=== PATIENT | male | born 1985 | race Caucasian/White ===

== ENCOUNTER 2017-10-10 23:06 | Inpatient (IN) | payer SELFPAY ==
[~2017-10-10] VITALS: Ht 175.3 cm; Wt 69.4 kg
[2017-10-11] VITALS (8 sets, daily range): BP systolic 136–188; BP diastolic 50–107
--- NOTE | 2017-10-11 00:26 | NUR ---
PT BIB FAMILY C/O GENERALIZED WEAKNESS AND NAUSEA X1 MONTH. DENIES PAIN OR ACUTE DISTRESS. RESP EVEN UNLABORED. SKIN WARM DRY. A/OX4. AMBULATORY STEADY GAIT.REPORTS WEAKNESS BUT NO FOCAL DEFICITS OR WEAKNESSES NOTED. DENIES VOMITING, DIARRHEA, OR URINARY SYMPTOMS. IN ER BED 11 WITH COUSIN AT BEDSIDE. Addendum: 10/11/17 at 0049 by [facility]FO[facility] CORRECTION: REPORTS VOMITING
--- NOTE | 2017-10-11 00:28 | NUR ---
PT ALSO REPORTS FEELING LIKE SOMETHING IS IN HIS THROAT. SKIN PALE.
[2017-10-11] MEDS ORDERED: ONDANSETRON HCL/PF 4 MG/2 ML VIAL IVP ONE (01:00)
[2017-10-11] MEDS ORDERED: ONDANSETRON HCL/PF 4 MG/2 ML VIAL ONE (01:06)
[2017-10-11] MEDS ORDERED: IV D5/ 0.9% NACL 1,000 ML IV ONE (01:11)
--- NOTE | 2017-10-11 01:18 | NUR ---
20G LEFT AC IV STARTED, MEDICATED PT ORDERED
[2017-10-11 01:28] LABS: ALBUMIN 3.1 g/dL (3.4-5.0); BILIRUBIN,DIRECT 0.1 mg/dL (0.0-0.2); BILIRUBIN,TOTAL 0.3 mg/dL (0.2-1.0); CALCIUM, SERUM 8.3 mg/dL (8.5-10.1); TOTAL PROTEIN, SERUM 6.8 g/dL (6.4-8.2)
[2017-10-11 01:36] LABS: BASOPHILS % (AUTO) 0.1 % (0.0-2.0); EOSINOPHILS % (AUTO) 1.4 % (0.0-6.0); LYMPHOCYTES # (AUTO) 0.7 /CMM (0.8-4.8); MEAN CORPUSCULAR HEMOGLOBIN 31 PG (26.0-33.0); MEAN CORPUSCULAR HGB CONC 34 g/dl (31.0-36.0); MEAN CORPUSCULAR VOLUME 90 fL (80-96); MONOCYTES # (AUTO) 0.5 /CMM (0.1-1.30); MONOCYTES % (AUTO) 9.3 % (2.0-12.0); NEUTROPHILS # (AUTO) 4.2 /CMM (1.8-8.9); NEUTROPHILS % (AUTO) 76.2 % (43.0-81.0); PLATELET COUNT (AUTO) 118 /CMM (150-450); RDW COEFFICIENT OF VARIATION 12.8 (11.5-15.0); RED BLOOD CELL COUNT(AUTO) 2.03 MIL/uL (4.5-6.0); WHITE BLOOD COUNT (AUTO) 5.6 K/uL (4.3-11.0)
[2017-10-11 01:43] LABS: APPEARANCE,URINE CLEAR (CLEAR); BILIRUBIN,URINE NEGATIVE (NEGATIVE); BLOOD, URINE 3+ Ery/uL (NEGATIVE); COLOR,URINE OTHER (YELLOW); KETONES,URINE NEGATIVE (NEGATIVE); LEUKOCYTE ESTERASE ,URINE NEGATIVE (NEGATIVE); NITRITE, URINE NEGATIVE (NEGATIVE); PH,URINE 5.5 (5.0-8.0); PROTEIN,URINE 2+ mg/dl (NEGATIVE); UGLUCOSE 1+ mg/dL (NEGATIVE); UROBILINOGEN,URINE 0.2 EU/dL (0.2)
[2017-10-11 01:43] LABS: CREATININE 16.4 mg/dL (0.6-1.3)
[2017-10-11 01:45] LABS: HEMATOCRIT 18 % (39-51); HEMOGLOBIN 6.3 g/dL (13.5-17.5)
--- NOTE | 2017-10-11 01:49 | NUR ---
PANEL CALL PLACED; AWAITING CALLBACK
[2017-10-11] MEDS ORDERED: Z GUARD REMEDY 2 OZ OINT TP PRN (02:00)
[2017-10-11] MEDS ORDERED: ONDANSETRON HCL/PF 4 MG/2 ML VIAL IVP PRN (02:00)
[2017-10-11] MEDS ORDERED: HYDROCODONE/APAP 5/325MG 1 EACH TABLET PO PRN (02:00)
[2017-10-11] MEDS ORDERED: ZOLPIDEM TARTRATE 5 MG TABLET PO PRN (02:00)
[2017-10-11] MEDS ORDERED: MAGNESIUM HYDROXIDE 30 ML UDC PO PRN (02:00)
[2017-10-11] MEDS ORDERED: ACETAMINOPHEN 325 MG TABLET PO PRN (02:00)
--- NOTE | 2017-10-11 02:05 | NUR ---
[facility] B[facility] 119-1
[2017-10-11 03:03] LABS: BACTERIA,URINE Few /HPF (None Seen); SQUAMOUS EPITHELIAL CELL,UR Rare /HPF (None Seen); WBC,URINE 0-2 /HPF (0-3)
[2017-10-11 03:06] LABS: LYMPHOCYTES % (MANUAL) 9 % (16-48); MONOCYTES % (MANUAL) 7 % (0-11.0); NEUTROPHILS % (MANUAL) 84 (42-76)
[2017-10-11 03:38] LABS: INR 0.89 (0.87-1.13)
--- NOTE | 2017-10-11 03:54 | NUR ---
STARTED BLOOD TRANSFUSION
--- NOTE | 2017-10-11 04:22 | NUR ---
TRANSPORTED PT TO [facility] B[facility] WITH EMT WITHOUT INCIDENT
--- NOTE | 2017-10-11 04:35 | NUR ---
CAMPUS RECRUITING COORDINATOR NOTES RECEIVED PT FROM ER NURSE DESMOND. PT ON ROOM AIR NO RESPIRATORY DISTRESS NOTED. PT ON STRETCHER TRANSFERRED TO BED WITHOUT ANY ASSISTANCE. PT HAS BLOOD TRANSFUSION GOING UPON RECEIVING THE PT. VITAL SIGNS STABLE. SKIN CHECKED DONE.
--- NOTE | 2017-10-11 05:10 | NUR ---
HAIRSPRING ASSEMBLER NOTES BLOOD TRANSFUSION DONE, NO REACTION NOTED AT THIS TIME. V/S STABLE.
[2017-10-11] MEDS: IV NS 0.9% 1,000 ML IV PRN ×2 (05:31→13:50)
--- NOTE | 2017-10-11 07:00 | NUR ---
RN NOTES RECEIVED LYING IN BED, ALERT AND ORIENTED, NOT ON ANY FORM OF DISTRESS, ON ROOM AIR, NO SOB NOTED, NORMAL SINUS RHYTHM ON TELE, HR AT 80S , WITH GAUGE 20 IV LINE ON THE LEFT AC, WITH ONGOING NORMAL SALINE AT 125CC/HR, CALL LIGHT KEEP WITHIN REACH, BED LOCKED AND AT LOWEST POSTION, WILL CONTINUE TO MONITOR PATIENT.
--- NOTE | 2017-10-11 07:02 | NUR ---
TD RN NOTES NO ACUTE CHANGES NOTED DURING THE SHIFT. PROVIDED COMFORT AND SAFETY. DUE MEDS GIVEN. ENDORSED TO THE AM NURSE FOR CONTINUITY OF CARE.
[2017-10-11 08:48] LABS: BASOPHILS % (AUTO) 0.3 % (0.0-2.0); EOSINOPHILS % (AUTO) 1.2 % (0.0-6.0); HEMATOCRIT 22 % (39-51); HEMOGLOBIN 7.4 g/dL (13.5-17.5); LYMPHOCYTES # (AUTO) 0.8 /CMM (0.8-4.8); LYMPHOCYTES % (AUTO) 14.2 % (20.0-44.0); MEAN CORPUSCULAR HEMOGLOBIN 32 PG (26.0-33.0); MEAN CORPUSCULAR HGB CONC 35 g/dl (31.0-36.0); MEAN CORPUSCULAR VOLUME 91 fL (80-96); MONOCYTES # (AUTO) 0.4 /CMM (0.1-1.30); MONOCYTES % (AUTO) 7.7 % (2.0-12.0); NEUTROPHILS # (AUTO) 4.4 /CMM (1.8-8.9); NEUTROPHILS % (AUTO) 76.6 % (43.0-81.0); PLATELET COUNT (AUTO) 120 /CMM (150-450); RDW COEFFICIENT OF VARIATION 12.8 (11.5-15.0); RED BLOOD CELL COUNT(AUTO) 2.36 MIL/uL (4.5-6.0); WHITE BLOOD COUNT (AUTO) 5.7 K/uL (4.3-11.0)
[2017-10-11 09:13] LABS: CALCIUM, SERUM 7.9 mg/dL (8.5-10.1); MAGNESIUM 1.9 mg/dL (1.8-2.4); POTASSIUM 3.3 mmol/L (3.5-5.1)
[2017-10-11 09:16] LABS: CREATININE 14.9 mg/dL (0.6-1.3)
[2017-10-11 09:24] LABS: PHOSPHORUS 9.3 mg/dL (2.5-4.9)
[2017-10-11] MEDS: CARVEDILOL 12.5 MG TABLET PO SCH ×2 (09:27→21:34)
[2017-10-11 09:48] LABS: TROPONIN I 0.771 ng/mL (0.00-0.056)
--- NOTE | 2017-10-11 10:14 | NUR ---
RN NOTES DR DAVID NOTIFED REGARDING PHOS= 9.3, AND OTHER ABNORMAL AM LAB RESULTS . CONTINUE TO MONITOR
[2017-10-11 10:28] LABS: THYROID STIMULATING HORMONE 2.59 uIU/mL (0.358-3.74)
[2017-10-11] MEDS: CALCIUM ACETATE 667 MG TABLET PO SCH ×2 (13:52→17:14)
[2017-10-11 14:51] LABS: CREATININE, URINE 53.3 MG/DL (30.0-125.0); URINE TOTAL PROTEIN 95.8 mg/dL (0-11.9)
--- NOTE | 2017-10-11 16:39 | NUR ---
RN NOTES RZ=[phone], SR FRANKIE NOTIFED , NEW ORDER GIVEN .CONTINUE TO MONITOR .
[2017-10-11] MEDS ORDERED: EPOETIN ALFA (4000 UNIT) 4,000 UNIT/ML VIAL SQ SCH (17:00)
[2017-10-11] MEDS: AMLODIPINE BESYLATE 10 MG TABLET PO SCH (17:13)
[2017-10-11] MEDS: SODIUM BICARBONATE 650 MG TABLET PO SCH (17:13)
[2017-10-11] MEDS: FUROSEMIDE 40 MG/4 ML VIAL IV SCH (17:13)
--- NOTE | 2017-10-11 18:59 | NUR ---
RN NOTES PT STABLE , OUT OF BED TO BATHROOM , BED LOCKED AND IN LOWEST POSITION , NO DISTRESS NOTED AT THIS TIME , WILL ENDOSE TO DUMP OPERATOR NURSE FOR CONTINUITY OF CARE .
--- NOTE | 2017-10-11 20:05 | NUR ---
RN NOTES RECEIVED PATIENT IN BED WATCHING TV WITH NO DISTRESS NOTED. ON ROOM AIR TOLERATING WELL. ALERT AND ORIENTED X 4. ABLE TO VERBALLY COMMUNICATE NEEDS. NO COMPLAINT OF PAIN OF THIS TIME. AMBULATORY. KEPT CLEAN AND DRY. WILL CONTINUE TO MONITOR.
[2017-10-12] VITALS: BP 136/95
[2017-10-12 04:00] VITALS: BP 127/80
--- NOTE | 2017-10-12 07:56 | NUR ---
RN NOTES RECEIVED PT ON BED, A/0x4, ON RA , RESPIRATION EVEN AND UNLABORED, NO SOB NOTED, L AC IV SITE G 20 CLEAN AND DRY , SR UP x2, CALL LIGHT WITHIN EASY REACH, BED LOCKED AND IN LOWEST POSITION, CONTINUE TO MONITOR .
[2017-10-12 08:00] VITALS: BP 134/89
[2017-10-12] MEDS: SODIUM BICARBONATE 650 MG TABLET PO SCH ×2 (08:07→16:18)
[2017-10-12] MEDS: AMLODIPINE BESYLATE 10 MG TABLET PO SCH (08:07)
[2017-10-12] MEDS: CALCIUM ACETATE 667 MG TABLET PO SCH ×3 (08:07→17:14)
[2017-10-12] MEDS: CARVEDILOL 12.5 MG TABLET PO SCH ×2 (08:08→22:03)
[2017-10-12] MEDS: FUROSEMIDE 40 MG/4 ML VIAL IV SCH ×2 (08:08→16:18)
[2017-10-12] MEDS: ASPIRIN 81 MG TAB.CHEW PO SCH (08:46)
[2017-10-12 10:19] LABS: ALBUMIN 2.7 g/dL (3.4-5.0); BILIRUBIN,TOTAL 0.4 mg/dL (0.2-1.0); MAGNESIUM 1.6 mg/dL (1.8-2.4); TOTAL PROTEIN, SERUM 6.4 g/dL (6.4-8.2)
[2017-10-12 10:20] LABS: CREATININE 14.9 mg/dL (0.6-1.3)
[2017-10-12 10:24] LABS: PHOSPHORUS 8.1 mg/dL (2.5-4.9)
[2017-10-12 10:27] LABS: BASOPHILS % (AUTO) 0.1 % (0.0-2.0); EOSINOPHILS % (AUTO) 1.9 % (0.0-6.0); HEMATOCRIT 21 % (39-51); HEMOGLOBIN 7.2 g/dL (13.5-17.5); LYMPHOCYTES # (AUTO) 0.6 /CMM (0.8-4.8); LYMPHOCYTES % (AUTO) 13.8 % (20.0-44.0); MEAN CORPUSCULAR HEMOGLOBIN 31 PG (26.0-33.0); MEAN CORPUSCULAR HGB CONC 34 g/dl (31.0-36.0); MEAN CORPUSCULAR VOLUME 90 fL (80-96); MONOCYTES # (AUTO) 0.4 /CMM (0.1-1.30); MONOCYTES % (AUTO) 8.5 % (2.0-12.0); NEUTROPHILS # (AUTO) 3.4 /CMM (1.8-8.9); NEUTROPHILS % (AUTO) 75.7 % (43.0-81.0); PLATELET COUNT (AUTO) 101 /CMM (150-450); RED BLOOD CELL COUNT(AUTO) 2.35 MIL/uL (4.5-6.0); WHITE BLOOD COUNT (AUTO) 4.5 K/uL (4.3-11.0)
[2017-10-12 16:00] VITALS: BP 130/87
[2017-10-12] MEDS: EPOETIN ALFA (4000 UNIT) 4,000 UNIT/ML VIAL SQ SCH (16:18)
--- NOTE | 2017-10-12 18:00 | NUR ---
RN NOTES PT STABLE , OUT OF BED TO BATHROOM, L AC IV SITE G 20 CLEAN ,DRY AND INTACT, CALL LIGHT WITHIN EASY REACH, WILL ENDOSE TO TRANSPORT MEDIC NURSE FOR CONTINUITY OF CARE .
[2017-10-12 20:00] VITALS: BP 131/89
[2017-10-13] VITALS (7 sets, daily range): BP systolic 124–142; BP diastolic 88–100
[2017-10-13] MEDS: SODIUM BICARBONATE 650 MG TABLET PO SCH ×2 (08:14→16:24)
[2017-10-13] MEDS: AMLODIPINE BESYLATE 10 MG TABLET PO SCH (08:15)
[2017-10-13] MEDS: CARVEDILOL 12.5 MG TABLET PO SCH ×2 (08:15→20:47)
[2017-10-13] MEDS: ASPIRIN 81 MG TAB.CHEW PO SCH (08:15)
[2017-10-13] MEDS: FUROSEMIDE 40 MG/4 ML VIAL IV SCH ×2 (08:15→16:24)
[2017-10-13] MEDS: CALCIUM ACETATE 667 MG TABLET PO SCH ×3 (08:25→17:05)
[2017-10-13 10:40] LABS: BASOPHILS % (AUTO) 0.2 % (0.0-2.0); EOSINOPHILS % (AUTO) 1.9 % (0.0-6.0); HEMATOCRIT 21 % (39-51); HEMOGLOBIN 7.2 g/dL (13.5-17.5); LYMPHOCYTES # (AUTO) 0.6 /CMM (0.8-4.8); LYMPHOCYTES % (AUTO) 13.1 % (20.0-44.0); MEAN CORPUSCULAR HEMOGLOBIN 31 PG (26.0-33.0); MEAN CORPUSCULAR HGB CONC 34 g/dl (31.0-36.0); MEAN CORPUSCULAR VOLUME 90 fL (80-96); MONOCYTES # (AUTO) 0.3 /CMM (0.1-1.30); MONOCYTES % (AUTO) 7.2 % (2.0-12.0); NEUTROPHILS # (AUTO) 3.7 /CMM (1.8-8.9); NEUTROPHILS % (AUTO) 77.6 % (43.0-81.0); PLATELET COUNT (AUTO) 122 /CMM (150-450); RED BLOOD CELL COUNT(AUTO) 2.36 MIL/uL (4.5-6.0); WHITE BLOOD COUNT (AUTO) 4.7 K/uL (4.3-11.0)
[2017-10-13 10:59] LABS: ALBUMIN 2.7 g/dL (3.4-5.0); BILIRUBIN,TOTAL 0.3 mg/dL (0.2-1.0); CALCIUM, SERUM 8.3 mg/dL (8.5-10.1); MAGNESIUM 1.6 mg/dL (1.8-2.4); PHOSPHORUS 7.5 mg/dL (2.5-4.9); POTASSIUM 3.3 mmol/L (3.5-5.1); TOTAL PROTEIN, SERUM 6.8 g/dL (6.4-8.2)
[2017-10-13 11:02] LABS: CREATININE 14.5 mg/dL (0.6-1.3)
[2017-10-13] MEDS: EPOETIN ALFA (4000 UNIT) 4,000 UNIT/ML VIAL SQ SCH (16:25)
[2017-10-14] VITALS: BP 128/85
[2017-10-14 04:00] VITALS: BP 122/82
--- NOTE | 2017-10-14 07:30 | NUR ---
HYDROTHERAPIST INITIAL NOTES RECEIVED PATIENT IN BED, AOX4, NO SIGNS OF DISTRESS, AMBULATORY, IV L AC 20G, CLEAN AND PATENT, CURRENTLY NPO FOR CT NEEDLE BIOPSY, ALL NEEDS ATTENDED TO, TEACHING DONE, BED IN LOW AND LOCKED POSITION CALL LIGHT WITHIN REACH, WILL CONTINUE TO MONITOR.
[2017-10-14 07:51] LABS: BASOPHILS % (AUTO) 0.7 % (0.0-2.0); EOSINOPHILS % (AUTO) 2.6 % (0.0-6.0); HEMATOCRIT 22 % (39-51); HEMOGLOBIN 7.5 g/dL (13.5-17.5); LYMPHOCYTES # (AUTO) 1.1 /CMM (0.8-4.8); LYMPHOCYTES % (AUTO) 20.6 % (20.0-44.0); MEAN CORPUSCULAR HEMOGLOBIN 31 PG (26.0-33.0); MEAN CORPUSCULAR HGB CONC 34 g/dl (31.0-36.0); MEAN CORPUSCULAR VOLUME 90 fL (80-96); MONOCYTES # (AUTO) 0.5 /CMM (0.1-1.30); NEUTROPHILS # (AUTO) 3.5 /CMM (1.8-8.9); NEUTROPHILS % (AUTO) 67.1 % (43.0-81.0); PLATELET COUNT (AUTO) 129 /CMM (150-450); RDW COEFFICIENT OF VARIATION 13.1 (11.5-15.0); RED BLOOD CELL COUNT(AUTO) 2.42 MIL/uL (4.5-6.0); WHITE BLOOD COUNT (AUTO) 5.3 K/uL (4.3-11.0)
[2017-10-14 08:00] VITALS: BP 136/101
[2017-10-14] MEDS: CALCIUM ACETATE 667 MG TABLET PO SCH ×3 (08:00→17:27)
[2017-10-14 08:06] LABS: ALBUMIN 2.7 g/dL (3.4-5.0); BILIRUBIN,TOTAL 0.3 mg/dL (0.2-1.0); CALCIUM, SERUM 8.5 mg/dL (8.5-10.1); MAGNESIUM 1.5 mg/dL (1.8-2.4); PHOSPHORUS 7.1 mg/dL (2.5-4.9); POTASSIUM 3.2 mmol/L (3.5-5.1); TOTAL PROTEIN, SERUM 6.6 g/dL (6.4-8.2)
[2017-10-14 08:11] LABS: CREATININE 14.3 mg/dL (0.6-1.3)
[2017-10-14] MEDS: CARVEDILOL 12.5 MG TABLET PO SCH (08:39)
[2017-10-14] MEDS: ASPIRIN 81 MG TAB.CHEW PO SCH (08:39)
[2017-10-14] MEDS: FUROSEMIDE 40 MG/4 ML VIAL IV SCH (08:39)
[2017-10-14] MEDS: SODIUM BICARBONATE 650 MG TABLET PO SCH ×2 (08:40→17:26)
[2017-10-14] MEDS: AMLODIPINE BESYLATE 10 MG TABLET PO SCH (08:40)
[2017-10-14] MEDS ORDERED: IV NS 0.9% 1,000 ML BAG IV PRN (10:00)
[2017-10-14] MEDS ORDERED: Magnesium 1GM/D5W 100ML PREMIX 100 ML IV SCH (10:00)
[2017-10-14] MEDS ORDERED: MIDAZOLAM HCL 5MG/ML VIAL 25 MG/5 ML VIAL IV ONE (11:00)
[2017-10-14] MEDS ORDERED: NALOXONE PREFILLED SYRINGE 2 MG/2 ML SYRINGE IV ONE (11:00)
[2017-10-14] MEDS ORDERED: FENTANYL PF 250MCG/5ML AMPUL IV ONE (11:00)
--- NOTE | 2017-10-14 13:27 | NUR ---
BONDING MACHINE SETTER NOTES PATIENT TAKEN TO PROCEDURE TO OR VIA WHEELCHAIR, NO DISTRESS NOTED, CONSENTS SIGNED FOR PROCEDURE AND MODERATE SEDATION, ALL QUESTIONS ANSWERED.
--- NOTE | 2017-10-14 14:48 | NUR ---
HEAD OF GEOGRAPHY NOTES PATIENT RETURNED FROM PROCEDURE, VITALS STABLE, NO DISTRESS NOTED. WILL CONTINUE TO MONITOR.
[2017-10-14 16:00] VITALS: BP 134/78
[2017-10-14] MEDS: EPOETIN ALFA (4000 UNIT) 4,000 UNIT/ML VIAL SQ SCH (17:27)
--- NOTE | 2017-10-14 18:40 | NUR ---
HIM ASSISTANT NOTES PATIENT STATED HE WANTS TO LEAVE AGAINST MEDICAL ADVICE, HE HAS BEEN SEEN BY DR DAVID EARLIER IN THE DAY ABOUT WANTING TO LEAVE EARLY ALL TEACHING DONE AND ALL RISKS DISCUSSED, PATIENT HAD NEEDLE BIOPSY EARLIER IN THE DAY, AWARE TO WATCH SITE FOR BLEEDING. TEACHING DONE ABOUT PROCEDURE AND SMOKING AND TO MAKE FOLLOWUP APPOINTMENT WITH MD, TO GO TO EMERGENCY ROOM INCASE OF DISTRESS, PATIENT VERBALIZED UNDERSTANDING, EXIT CARE SIGNED, IV DC TIP INTACT, PATIENT WALK OUT TO LOBBY FAMILY MEMBER TO PICK HIM UP. BELONGINGS LIST SIGNED. INCIDENT REPORT DONE WITH NUMBER [id number]
[2017-10-15 07:09] LABS: *SPE A/G RATIO 1.2 (0.7-1.7); *SPE ALBUMIN 3.1 g/dL (2.9-4.4); *SPE ALPHA-1-GLOBULIN 0.3 g/dL (0.0-0.4); *SPE ALPHA-2-GLOBULIN 0.6 g/dL (0.4-1.0); *SPE BETA GLOBULIN 0.9 g/dL (0.7-1.3); *SPE GLOBULIN, TOTAL 2.6 g/dL (2.2-3.9); *SPE M-SPIKE Not Observed g/dL (Not Observed); *SPEGAMMA GLOBULIN 0.8 g/dL (0.4-1.8)
[2017-10-15 08:08] LABS: COMPLEMENT C3, SERUM 86 mg/dL (82-167); COMPLEMENT C4, SERUM 28 mg/dL (14-44)
[2017-10-15 12:12] LABS: *ANCANTIMYELOPEROXIDASE (MPO) <9.0 U/mL (0.0-9.0); *ANCANTIPROTEINASE 3 (PR-3) AB <3.5 U/mL (0.0-3.5)
[2017-10-15 14:22] LABS: *ANCA ATYPICAL p-ANCA <1:20 titer (Neg:<1:20); *ANCA CYTOPLASMIC (C-ANCA) <1:20 titer (Neg:<1:20); *ANCA PERINUCLEAR (P-ANCA) <1:20 titer (Neg:<1:20)
== END 2017-10-14 18:41 | disposition left against medical advice (07) | DRG 683 ==
LOC: ER 23:11 → TELE1 10-11 02:05 → TELE-TD 10-11 07:32 → TELE1 10-11 08:56 → MEDSG1 10-13 05:48
PROVIDERS: ADMIT Nurse Practitioner Acute Care; ATTEND Nurse Practitioner Acute Care
PROC: 30233N1 Transfusion of Nonautologous Red Blood Cells into Peripheral Vein, Percutaneous Approach (ICD-10-PCS; 2017-10-11)
PROC: 0TB13ZX Excision of Left Kidney, Percutaneous Approach, Diagnostic (ICD-10-PCS; principal; 2017-10-14)
DX: N17.9 Acute kidney failure, unspecified (principal); E87.2 Acidosis; E44.1 Mild protein-calorie malnutrition; D64.9 Anemia, unspecified; E83.39 Other disorders of phosphorus metabolism; N18.9 Chronic kidney disease, unspecified; D69.6 Thrombocytopenia, unspecified; E87.6 Hypokalemia; R53.1 Weakness; F17.210 Nicotine dependence, cigarettes, uncomplicated; I12.9 Hypertensive chronic kidney disease with stage 1 through stage 4 chronic kidney disease, or unspecified chronic kidney disease; N28.89 Other specified disorders of kidney and ureter; Z68.22 Body mass index [BMI] 22.0-22.9, adult
CPT/HCPCS: 36415; 71045-TC; 71250-TC; 76770-TC; 76942-TC; 77012-TC; 80048-TC; 80053-TC; 80061-TC; 80076-TC; 81000-TC; 82306; 82553-TC; 82570-TC; 82728-TC; 82962-TC; 83516; 83520; 83540-TC; 83690-TC; 83735-TC; 84100-TC; 84155; 84155-TC; 84165; 84439-TC; 84443-TC; 84484-TC; 85025-TC; 85652-TC; 85730-TC; 86256; 86706; 86850-TC; 86921-TC; 87081-TC; 87340; 93307-TC; A4606; J0885; J1940; J2250; J2310; J2405; J3010; J3475; J7030; J7040; J7050; P9016-BL; Z7610